=== PATIENT | male | born 1970 | race Caucasian/White ===

== ENCOUNTER → 2018-04-05 | Outpatient (CLI) | payer OTHER ==
--- NOTE | 2018-04-07 14:58 | SLEEPCENT ---
DATE OF PROCEDURE: 04/05/2018 ORDERING PROVIDER: Alyce Newton NP Nocturnal polysomnography was performed for the titration of pressure therapy in this patient with a history of obstructive sleep apnea syndrome and snoring despite the use of C-PAP. For testing, a [employer]Med Quattro full face mask of medium size was used, 13 cm of water pressure was applied to the circuit, and the lights were extinguished. 7 hours and 22 minutes of data were reviewed. There are 354 minutes of sleep identified. Sleep latency was mildly prolonged at 33 minutes. Rapid eye movement (REM) latency more so prolonged at 259-minutes. Sleep architecture showed poor progression but two REM cycles were seen late in the study. Overall sleep efficiency was good at 81%. There was some mild reduction in REM time. The patient's electrocardiogram showed a sinus rhythm with an average heart rate of 77 beats per minute. Electroencephalogram (EEG) showed essentially normal waveforms for awake and sleep with some EKG bleed through. No focal events were identified. Respiratory events were fully palliated with C-PAP to a pressure of 13 with some minimal snoring noted early in the study with no obstructive events and no significant oxygen desaturations accompanied it. There was mild activity in the limb leads. Limb movement arousal index was borderline at 10.2. IMPRESSION: Obstructive sleep apnea syndrome (G47.33). RECOMMENDATIONS: Nightly use of pressure therapy at 13 cm of water.
== END ==
LOC: M SLEEP 19:33
PROVIDERS: ATTEND Nurse Practitioner Adult Health
DX: G47.33 Obstructive sleep apnea (adult) (pediatric) (principal)